=== PATIENT | female | born 1945 | race Caucasian/White ===

== ENCOUNTER → 2017-12-18 | Outpatient (CLI) | payer OTHER ==
[~2017-12-18] MED LIST: ASPIR 8181 M1 PO; CYCLOBENZAPRINE5 MG PO; FISH OIL 1,001000 M2 PO; IBUPROFEN200 MG PO; METFORMIN HCL500 M1 PO; MINOCIN100 MG PO; NEURONTIN100 MG PO; SYNTHROID112 MC1 PO; VITAMIN B-12100 MCG PO; VITAMIN D5000 UNIT PO
== END ==
LOC: M.RAD 10:23
DX: Z12.31 Encounter for screening mammogram for malignant neoplasm of breast (principal)

== ENCOUNTER 2018-04-20 08:29 | Inpatient (IN) | payer OTHER ==
[~2018-04-20] VITALS: Ht 167.6 cm; Wt 83.9 kg
[2018-04-20] MEDS ORDERED: FISH OIL 1,001000 M2 PO (10:38)
[2018-04-20] MEDS ORDERED: ASPIR 8181 M1 PO (10:39)
[2018-04-20] MEDS ORDERED: VITAMIN D5000 UNIT PO (10:39)
[2018-04-20] MEDS ORDERED: METFORMIN HCL500 M1 PO (10:40)
[2018-04-20] MEDS ORDERED: VITAMIN B-12100 MCG PO (10:40)
[2018-04-20] MEDS ORDERED: NEURONTIN100 MG PO (10:40)
[2018-04-20] MEDS ORDERED: CYCLOBENZAPRINE5 MG PO (10:44)
[2018-04-20] MEDS ORDERED: SYNTHROID112 MC1 PO (10:44)
[2018-04-20 11:00] VITALS: BP 166/72
[2018-04-20 11:13] LABS: ABSOLUTE EOSINOPHILS 0.1 thou/uL (0.0-0.7); ABSOLUTE LYMPHOCYTES 0.9 thou/uL (0.8-5.3); ABSOLUTE MONOCYTES 0.3 thou/uL (0.0-1.2); ABSOLUTE NEUTROPHILS 4.8 thou/uL (1.6-8.1); BASOPHILS 0.3 %; EOSINOPHILS 2.3 %; HEMATOCRIT 39.3 % (37.0-47.0); HEMOGLOBIN 13.4 gm/dL (12.0-15.0); LYMPHOCYTES 14.9 %; MCHC 34.1 g/dL (28.0-37.0); MCV 96.9 fL (80.0-100.0); MONOCYTES 5.3 %; MPV 7.5 fl. (7.2-11.1); NUCLEATED RBCS 0 /100WBC; PLATELET COUNT* 252 thou/uL (150-400); POLYS 77.2 %; RBC 4.05 mil/uL (4.20-5.00); RDW-CV 12.3 % (10.5-14.5); WBC 6.2 thou/uL (4.0-11.0)
[2018-04-20 11:18] LABS: CALCIUM 9.6 mg/dL (8.5-10.1); CREATININE 0.8 mg/dL (0.6-1.3); POTASSIUM 4.1 mmol/L (3.5-5.1)
[2018-04-20 15:46] VITALS: BP 152/80
--- NOTE | 2018-04-20 16:54 | NUR ---
PT UP TO ROOM THIS AM. PT DENIES PAIN. SEEN BY SURGERY AND ID. WOUND MARKED. PT UP IN ROOM WITH STEADY GAIT. IVF INFUSING. TOLERATING PO WELL
[2018-04-20] MEDS ORDERED: IBUPROFEN200 MG PO (18:20)
[2018-04-20 20:00] VITALS: BP 145/74
[2018-04-20 23:14] VITALS: BP 144/65
[2018-04-21 04:43] LABS: HEMOGLOBIN 11.8 gm/dL (12.0-15.0); MCHC 33.9 g/dL (28.0-37.0); MCV 97.5 fL (80.0-100.0); MPV 7.7 fl. (7.2-11.1); RBC 3.58 mil/uL (4.20-5.00); RDW-CV 12.2 % (10.5-14.5); WBC 5.8 thou/uL (4.0-11.0)
[2018-04-21 04:47] VITALS: BP 139/69
[2018-04-21 04:56] LABS: CALCIUM 8.4 mg/dL (8.5-10.1); CREATININE 0.9 mg/dL (0.6-1.3); MAGNESIUM 1.7 mg/dL (1.8-2.4); POTASSIUM 4.5 mmol/L (3.5-5.1)
--- NOTE | 2018-04-21 07:03 | NUR ---
PATIENT PARTIALLY PROGRESSING TOWARDS GOALS: PAIN PARTIALLY MANAGED WITH IBUPROFEN AND ICE APPLICATION. REDNESS/SWELLING/WARMTH NOTED TO SLIGHTLY SPREAD BEYOND MARKED BORDERS. VS REMAIN STABLE ON ROOM AIR. PATIENT AMBULATING WITH SBA. HOURLY ROUNDING OSBERVED. CALL LIGHT WITHIN REACH
[2018-04-21 08:15] VITALS: BP 159/71
--- NOTE | 2018-04-21 10:45 | CON ---
[address] [address] CONSULTATION Name: BONIFACIO FISH Room: [address] IN M.R.#: [id number] Admission: 04/20/18 Attend Phys: Gwyn Isaac, Discharge: Date of : 47 Report #: [id number] THIS REPORT FOR: //name// CC: Karen Isaac DATE OF SERVICE: 04/20/2018 INFECTIOUS DISEASE CONSULTATION ATTENDING PHYSICIAN: Gwyn Isaac M.D. REASON FOR EVALUATION: Brown recluse spider bite, complicated by marked inflammatory erythrodermic-type eruption, likely skin and soft tissue infection with cellulitis. HISTORY OF PRESENT ILLNESS: Chart reviewed, the patient examined. This is a 72-year-old with history of diabetes mellitus, although non-insulin requiring, who confirmed to have prior brown recluse spider bite involving the left mid portion of the medial thigh. This was roughly 72 hours ago. It progressed and became quite painful. She developed a necrotic area at the site of the bite, [facility] and subsequently admitted. She had been seen as an outpatient and was initially treated with trimethoprim sulfamethoxazole and felt to have a hypersensitivity reaction to that as well as cephalexin, and again the same. She was admitted and initiated on therapy with vancomycin. She had experienced some fevers, chills. There was also some nausea with intermittent cough with dyspnea. She is not encephalopathic. She underwent an venous Doppler, which showed no evidence of DVT. CT of the thighs showed thickening and prominence of the fat, consistent with synovitis. No evidence of abscess, free air or definite skin breakdown. No loculated fluid collections. ALLERGIES: LISTED TO PENICILLINS, LISINOPRIL, CODEINE, CEPHALEXIN, SULFA AND ATORVASTATIN. CURRENT MEDICATIONS: Include cholecalciferol, cyanocobalamin, aspirin, fish oil, losartan, levothyroxine, vancomycin, enoxaparin, clindamycin, metformin, pantoprazole, gabapentin and cyclobenzaprine. PAST MEDICAL HISTORY: As noted above, the diabetes mellitus, history of hypothyroidism, hypertension and previous history of colon cancer. SOCIAL HISTORY: Nonsmoker, no ethanol. FAMILY HISTORY: [place] [address] CONSULTATION Name: BONIFACIO FISH [place] Room: [address]#: [id number] Admission: 04/20/18 Attend Phys: Gwyn Isaac, Discharge: Date of : 47 Report #: [id number] REVIEW OF SYSTEMS: As above. PHYSICAL EXAMINATION: GENERAL: She is pleasant, alert and cooperative. She is in moderate distress secondary to the pain associated with her left thigh. Appears to be reasonably well nourished. VITAL SIGNS: Temperature 98.8, pulse 80, respirations 20 and blood pressure 166/72. Weight 185 pounds. SKIN: Warm, dry. HEENT: Unremarkable. NECK: Supple. LUNGS: Clear to auscultation. HEART: Regular. I do not appreciate a murmur. ABDOMEN: Soft, nontender. EXTREMITIES: Left thigh has extensive area involving pretty much the entirety of it and at least half circumferential is erythrodermic. It is quite tender. There is a localized area medial, approximately one-third with some clear hemorrhagic component, likely early necrosis, although there is no breakdown. There is no fluctuance. I do not appreciate any localizing fluid collection. No masses. GENITOURINARY: Deferred. RECTAL: Deferred. LABORATORY DATA AND IMAGING: As noted above. Lactic acid 1.8. CBC: White count of 6.2, H and H 13.4 and 39.3 and platelets of 252,000. Electrolytes: Sodium 138, potassium 4.1, chloride 100, bicarbonate is 32, BUN and creatinine 15 and 0.8 and estimated GFR of 71. ASSESSMENT AND PLAN: A brown recluse spider bite. She has got a photographic prove. This was apparently a fairly significant dose of venom. I think it is probably a secondary skin and soft tissue infection with likely skin-related bacteria, including staph or strep. Continue empiric therapy. It may well localize and we will follow clinically. If that is the case, may benefit from some sort of surgical debridement. I did discuss with Surgery. I agree that at this point, there no operative intervention that would assist in quicker resolution. Thank you. We will follow. <ELECTRONICALLY SIGNED> By: Eugene Lozano MD 04/21/18 [id number] Lozano MD /nt
[2018-04-21 15:50] VITALS: BP 143/77
--- NOTE | 2018-04-21 17:05 | NUR ---
PATIENT ALERT AND ORIENTED X4. VITAL SIGNS STABLE ON ROOM AIR. UP WITH STAND BY ASSISTANCE IN ROOM. IV PATENT WITH FLUIDS INFUSING. PAIN BEING MANAGED WITH PO MEDICATION. DENIES NAUSEA. NECROTIC AREA TO LEFT INNER THIGH FROM SPIDER BITE. ENTIRE LEFT THIGH RED AND WARM TO TOUCH. BORDER MARKED. ICE PACKS USED FOR COMFORT. HOURLY ROUNDS MAINTAINED THROUGHOUT THE SHIFT. CALL LIGHT WITHIN REACH. NURSING WILL CONTINUE TO MONITOR.
[2018-04-21 20:30] VITALS: BP 158/83
--- NOTE | 2018-04-22 06:33 | NUR ---
PATIENT HAS SLEPT WELL THROUGHOUT THE NIGHT WITHOUT ANY ISSUES. VSS ON RA. PAIN WELL CONTROLLED. MEDICATIONS GIVEN ORDERED AND CHARTED. PATIENT IS UP SBA TO THE BATHROOM. ASSESSMENT CHARTED. IV IN RIGHT FOREARM-NS W/20K+ @ 100ML/HR. PATIENT INSTRUCTED TO USE CALL LIGHT WHEN NEEDING ASSISTANCE. HOURLY ROUNDS MADE. WILL CONTINUE WITH PLAN OF CARE AND NURSING TO MONITOR.
[2018-04-22 08:30] VITALS: BP 148/68
[2018-04-22 16:05] VITALS: BP 155/82
--- NOTE | 2018-04-22 17:08 | NUR ---
PATIENT ALERT AND ORIENTED X 4. VITAL SIGNS STABLE ON ROOM AIR. UP AD MCKENZIE IN ROOM. IV PATENT WITH FLUIDS INFUSING. PAIN BEING MANAGED WITH PO MEDICATION AND ICE APPLICATION. DENIES NAUSEA. REDNESS, SWELLING, AND WARMTH TO LEFT THIGH, WITH BORDERS MARKED. HOURLY ROUNDS MAINTAINED THROUGHOUT THE SHIFT. CALL LIGHT WITHIN REACH. NURSING WILL CONTINUE TO MONITOR.
[2018-04-23 04:29] LABS: HEMATOCRIT 35.5 % (37.0-47.0); MCH 32.8 pg (26.0-34.0); MCHC 33.9 g/dL (28.0-37.0); MCV 96.7 fL (80.0-100.0); MPV 7.7 fl. (7.2-11.1); RBC 3.67 mil/uL (4.20-5.00); RDW-CV 12.5 % (10.5-14.5); WBC 4.8 thou/uL (4.0-11.0)
[2018-04-23 05:12] LABS: ALBUMIN 3.4 g/dL (3.4-5.0); CALCIUM 8.9 mg/dL (8.5-10.1); CREATININE 0.9 mg/dL (0.6-1.3); MAGNESIUM 1.6 mg/dL (1.8-2.4); POTASSIUM 4.2 mmol/L (3.5-5.1); TOTAL BILIRUBIN 0.3 mg/dL (<0.1-1.0)
--- NOTE | 2018-04-23 07:02 | NUR ---
PATIENT HAS SLEPT WELL THROUGHOUT THE NIGHT WITHOUT ANY ISSUES. VSS ON RA. NO C/O PAIN DURING SHIFT. PATIENT IS UP AD-MCKENZIE AND STEADY. IV IN RIGHT FOREARM-NS W/20K+ @ 100ML/HR. IV ABT'S GIVEN WITHOUT ANY ADVERSE SIDE EFFECTS NOTED. PATIENT INSTRUCTED TO USE CALL LIGHT WHEN NEEDING ASSISTANCE. HOURLY ROUNDS MADE. WILL CONTINUE WITH PLAN OF CARE AND NURSING TO MONITOR.
[2018-04-23 08:15] VITALS: BP 180/101
[2018-04-23] MEDS ORDERED: MINOCIN100 MG PO (16:37)
[2018-04-23 16:39] VITALS: BP 180/101
[2018-04-23 16:40] VITALS: BP 170/86
--- NOTE | 2018-04-23 16:58 | NUR ---
VISITED WITH PT. SHE WAS ALERT AND ORIENTED. LIVES WITH HER . SHE IS INDEPENDENT AT HOME. DOES NOT USE DME AND NEVER HAD HOME HEALTH. IS UP AD MCKENZIE WITH STEADY GAIT. SHE SAID SHE IS FEELING BETTER AND HOPES TO GO HOME SOON. SHOULD HAVE NO DISCHARGE NEEDS.
[2018-04-23 17:47] VITALS: BP 180/101
--- NOTE | 2018-04-23 19:05 | NUR ---
PATIENT LEFT UNIT AT 1700. ALERT AND ORIENTED X4. UP AD MCKENZIE IN ROOM. IV DC'D. PAIN BEING MANAGED WITH PO PAIN MEDICATION. DENIES NAUSEA. ALL PERSONAL ITEMS LEFT WITH PATIENT. DISCHARGE INSTRUCTIONS, PRESCRIPTIONS, AND NEW MEDICATION INFORMATION SENT WITH PATIENT. VSS ON ROOM AIR. HOURLY ROUNDS HAVE BEEN MAINTAINED THROUGHOUT SHIFT. LEFT WITH FAMILY MEMBER VIA CAR.
== END 2018-04-23 17:00 | disposition home or self-care (01) | DRG 603 ==
LOC: M.WC 08:29 → M.ORTHSURG 09:57
PROVIDERS: ADMIT Family Medicine
DX: L03.116 Cellulitis of left lower limb (principal); E11.9 Type 2 diabetes mellitus without complications; I10 Essential (primary) hypertension; I25.10 Atherosclerotic heart disease of native coronary artery without angina pectoris; K21.9 Gastro-esophageal reflux disease without esophagitis; E03.9 Hypothyroidism, unspecified; Z88.6 Allergy status to analgesic agent; Z88.1 Allergy status to other antibiotic agents; Z88.0 Allergy status to penicillin; Z88.2 Allergy status to sulfonamides; Z88.8 Allergy status to other drugs, medicaments and biological substances; Z79.2 Long term (current) use of antibiotics; Z79.82 Long term (current) use of aspirin; Z79.899 Other long term (current) drug therapy; Z90.49 Acquired absence of other specified parts of digestive tract; Z83.3 Family history of diabetes mellitus; Z80.0 Family history of malignant neoplasm of digestive organs; Z82.49 Family history of ischemic heart disease and other diseases of the circulatory system; Z85.038 Personal history of other malignant neoplasm of large intestine

== ENCOUNTER → 2018-05-03 | Outpatient (CLI) | payer OTHER | LOC: M.WC 09:30 | DX: T63.331D Toxic effect of venom of brown recluse spider, accidental (unintentional), subsequent encounter (principal); L03.116 Cellulitis of left lower limb; E11.65 Type 2 diabetes mellitus with hyperglycemia; E03.8 Other specified hypothyroidism; I10 Essential (primary) hypertension; I25.10 Atherosclerotic heart disease of native coronary artery without angina pectoris; K21.9 Gastro-esophageal reflux disease without esophagitis; F41.9 Anxiety disorder, unspecified; F32.9 Major depressive disorder, single episode, unspecified; Z85.038 Personal history of other malignant neoplasm of large intestine ==

== ENCOUNTER → 2018-05-10 | Outpatient (CLI) | payer OTHER | LOC: M.WC 04:48 | DX: T63.331D Toxic effect of venom of brown recluse spider, accidental (unintentional), subsequent encounter (principal); E11.9 Type 2 diabetes mellitus without complications; I10 Essential (primary) hypertension; L03.116 Cellulitis of left lower limb; E03.9 Hypothyroidism, unspecified; I25.10 Atherosclerotic heart disease of native coronary artery without angina pectoris; K21.9 Gastro-esophageal reflux disease without esophagitis; F41.9 Anxiety disorder, unspecified; F32.9 Major depressive disorder, single episode, unspecified ==

== ENCOUNTER → 2018-05-17 | Outpatient (CLI) | payer OTHER | LOC: M.WC 04:44 | DX: T63.331D Toxic effect of venom of brown recluse spider, accidental (unintentional), subsequent encounter (principal); L03.116 Cellulitis of left lower limb; E11.65 Type 2 diabetes mellitus with hyperglycemia; E03.9 Hypothyroidism, unspecified; I25.10 Atherosclerotic heart disease of native coronary artery without angina pectoris; I10 Essential (primary) hypertension; K21.9 Gastro-esophageal reflux disease without esophagitis; F41.9 Anxiety disorder, unspecified; F32.9 Major depressive disorder, single episode, unspecified ==

== ENCOUNTER → 2018-05-24 | Outpatient (CLI) | payer OTHER | LOC: M.WC 03:55 | DX: T63.331D Toxic effect of venom of brown recluse spider, accidental (unintentional), subsequent encounter (principal); L03.116 Cellulitis of left lower limb; E11.65 Type 2 diabetes mellitus with hyperglycemia; E03.8 Other specified hypothyroidism; I25.10 Atherosclerotic heart disease of native coronary artery without angina pectoris; I10 Essential (primary) hypertension; K21.9 Gastro-esophageal reflux disease without esophagitis; F41.9 Anxiety disorder, unspecified; F32.9 Major depressive disorder, single episode, unspecified; Z85.038 Personal history of other malignant neoplasm of large intestine ==

== ENCOUNTER → 2018-05-31 | Outpatient (CLI) | payer OTHER | LOC: M.WC 01:51 | DX: T63.331D Toxic effect of venom of brown recluse spider, accidental (unintentional), subsequent encounter (principal); L03.116 Cellulitis of left lower limb; E11.65 Type 2 diabetes mellitus with hyperglycemia; E03.8 Other specified hypothyroidism; E03.9 Hypothyroidism, unspecified; I25.10 Atherosclerotic heart disease of native coronary artery without angina pectoris; I10 Essential (primary) hypertension; K21.9 Gastro-esophageal reflux disease without esophagitis; F41.9 Anxiety disorder, unspecified; F32.9 Major depressive disorder, single episode, unspecified; Z85.038 Personal history of other malignant neoplasm of large intestine ==

== ENCOUNTER → 2018-06-07 | Outpatient (CLI) | payer OTHER | LOC: M.WC 04:51 | DX: T63.331D Toxic effect of venom of brown recluse spider, accidental (unintentional), subsequent encounter (principal); L03.116 Cellulitis of left lower limb; E11.65 Type 2 diabetes mellitus with hyperglycemia; E03.8 Other specified hypothyroidism; I25.10 Atherosclerotic heart disease of native coronary artery without angina pectoris; I10 Essential (primary) hypertension; K21.9 Gastro-esophageal reflux disease without esophagitis; F41.9 Anxiety disorder, unspecified; F32.9 Major depressive disorder, single episode, unspecified ==

== ENCOUNTER → 2018-06-14 | Outpatient (CLI) | payer OTHER | LOC: M.WC 04:59 | DX: T63.331D Toxic effect of venom of brown recluse spider, accidental (unintentional), subsequent encounter (principal); E11.65 Type 2 diabetes mellitus with hyperglycemia; E03.8 Other specified hypothyroidism; I25.10 Atherosclerotic heart disease of native coronary artery without angina pectoris; I10 Essential (primary) hypertension; K21.9 Gastro-esophageal reflux disease without esophagitis; F41.9 Anxiety disorder, unspecified; F32.9 Major depressive disorder, single episode, unspecified ==

== ENCOUNTER → 2018-06-21 | Outpatient (CLI) | payer OTHER | LOC: M.WC 05:12 | DX: T63.331D Toxic effect of venom of brown recluse spider, accidental (unintentional), subsequent encounter (principal); E11.65 Type 2 diabetes mellitus with hyperglycemia; E03.8 Other specified hypothyroidism; I25.10 Atherosclerotic heart disease of native coronary artery without angina pectoris; I10 Essential (primary) hypertension; K21.9 Gastro-esophageal reflux disease without esophagitis; F41.9 Anxiety disorder, unspecified; F32.9 Major depressive disorder, single episode, unspecified ==

== ENCOUNTER → 2019-02-14 | Outpatient (CLI) | payer OTHER | LOC: M.RAD 11:00 | DX: Z12.31 Encounter for screening mammogram for malignant neoplasm of breast (principal) ==

== ENCOUNTER → 2020-06-23 | Outpatient (CLI) | payer OTHER | LOC: M.RAD 09:57 | PROVIDERS: ATTEND Family Medicine | DX: Z12.31 Encounter for screening mammogram for malignant neoplasm of breast (principal) ==

== ENCOUNTER → 2021-06-25 | Outpatient (CLI) | payer OTHER | LOC: M.RAD 10:42 | PROVIDERS: ATTEND Family Medicine | DX: Z12.31 Encounter for screening mammogram for malignant neoplasm of breast (principal); N64.89 Other specified disorders of breast ==

== ENCOUNTER 2021-07-07 15:54 | Emergency (ER) | payer OTHER ==
[~2021-07-07] VITALS: Ht 162.6 cm; Wt 79.8 kg
[2021-07-07 16:40] LABS: ABSOLUTE LYMPHOCYTES 1.1 thou/uL (0.8-5.3); ABSOLUTE MONOCYTES 0.3 thou/uL (0.0-1.2); ABSOLUTE NEUTROPHILS 2.8 thou/uL (1.6-8.1); BASOPHILS 0.1 %; EOSINOPHILS 0.9 %; HEMATOCRIT 38.1 % (37.0-47.0); HEMOGLOBIN 13.1 gm/dL (12.0-15.0); LYMPHOCYTES 26.3 %; MCH 32.8 pg (26.0-34.0); MCHC 34.3 g/dL (28.0-37.0); MCV 95.7 fL (80.0-100.0); MONOCYTES 7.4 %; MPV 7.2 fl. (7.2-11.1); NUCLEATED RBCS 0 /100WBC; PLATELET COUNT* 228 thou/uL (150-400); POLYS 65.3 %; RBC 3.98 mil/uL (4.20-5.00); WBC 4.3 thou/uL (4.0-11.0)
[2021-07-07 16:46] LABS: CALCIUM 8.7 mg/dL (8.5-10.1); POTASSIUM 3.4 mmol/L (3.5-5.1)
[2021-07-07 16:51] LABS: ALBUMIN 3.6 g/dL (3.4-5.0); TOTAL BILIRUBIN 0.6 mg/dL (<0.1-1.0)
[2021-07-07 17:44] VITALS: BP 121/60
== END 2021-07-07 17:46 | disposition home or self-care (01) ==
LOC: M.ERS 15:54
PROVIDERS: Family Medicine
DX: K91.841 Postprocedural hemorrhage of a digestive system organ or structure following other procedure (principal); I10 Essential (primary) hypertension; E03.9 Hypothyroidism, unspecified; E11.9 Type 2 diabetes mellitus without complications; Z79.82 Long term (current) use of aspirin; Z79.899 Other long term (current) drug therapy; Z88.0 Allergy status to penicillin; Z88.5 Allergy status to narcotic agent; Z88.1 Allergy status to other antibiotic agents; Z88.2 Allergy status to sulfonamides; Y83.8 Other surgical procedures as the cause of abnormal reaction of the patient, or of later complication, without mention of misadventure at the time of the procedure; Y92.89 Other specified places as the place of occurrence of the external cause